=== PATIENT | female | born 1960 | race Caucasian/White ===

== ENCOUNTER 2016-12-20 17:30 | Emergency (ER) | payer SELFPAY | END 2016-12-20 17:46 | disposition left against medical advice (07) | LOC: ERS 17:30 | DX: Z53.21 Procedure and treatment not carried out due to patient leaving prior to being seen by health care provider (principal) ==

== ENCOUNTER 2017-08-02 15:19 | Emergency (ER) | payer SELFPAY ==
[2017-08-02 15:50] LABS: #Basophils 0.1 thou/uL (0.0-0.2); #Eosinphils 0.1 thou/uL (0.0-0.7); #Lymphocytes 3.1 thou/uL (1.20-3.40); #Neutrophils 6.4 thou/uL (1.40-6.50); %Basophils 0.5 % (0.0-1.0); %Eosinophils 1.3 % (0.0-10.0); %Lymphocytes 28.8 % (21.0-51.0); %Monocytes 9.6 % (0.0-10.0); %Neutrophils 59.9 % (42.0-75.0); Hemoglobin 15.1 g/dL (12.0-16.0); Mean Corpuscular HGB CONC 35.3 g/dL (32.0-36.0); Mean Corpuscular Hemoglobin 34.6 pg (27.0-31.0); Mean Corpuscular Volume 97.9 fl (81.0-99.0); Mean Platelet Volume 7.2 fL (7.4-10.4); Platelet Count 150 thou/uL (130-400); RBC Distribution Width 11.6 % (11.5-14.5); Red Blood Cell (RBC) Count 4.36 mill/uL (4.20-5.40); White Blood Cell (WBC) Count 10.6 thou/uL (4.8-10.8)
--- NOTE | 2017-08-02 15:54 | RAD ---
PORTABLE CHEST: 08/02/17 HISTORY: Chest pain. Lungs are clear. Heart and mediastinum unremarkable. IMPRESSION: Unremarkable portable chest. POS: [facility]
[2017-08-02 16:25] LABS: ALT (SGPT) 55 U/L (8-55); AST (SGOT) 34 U/L (5-34); Alkaline Phosphatase 74 U/L (40-150); Anion Gap 15 mmol/L (10-20); BUN (Urea Nitrogen) Less than 4 mg/dL (9.8-20.1); Bilirubin, Total 0.5 mg/dL (0.2-1.2); CK (CPK) 145 U/L (29-168); Calc. Creatinine Clearance 0 mL/min (70-130); Calcium 8.9 mg/dL (7.8-10.44); Carbon Dioxide 22 mmol/L (22-29); Chloride 99 mmol/L (98-107); Estimated GFR-MDRD Greater than 90; Globulin 2.8 g/dL (2.4-3.5); Glucose 113 mg/dL (70-105); Lipase 49 U/L (8-78); Potassium 3.9 mmol/L (3.5-5.1); Protein, Total 6.8 g/dL (6.0-8.3); Sodium 132 mmol/L (136-145)
[2017-08-02 16:34] LABS: CKMB 2.3 ng/mL (0-6.6); Troponin I Less than 0.010 ng/mL (< 0.028)
== END 2017-08-02 17:22 | disposition home or self-care (01) ==
LOC: ERS 15:19
DX: M25.512 Pain in left shoulder (principal); F10.10 Alcohol abuse, uncomplicated; Z71.6 Tobacco abuse counseling; I10 Essential (primary) hypertension; F41.9 Anxiety disorder, unspecified; F17.210 Nicotine dependence, cigarettes, uncomplicated
CPT/HCPCS: 36415; 71045; 80053; 82553; 83690; 84484; 85025; 93005; 99406

== ENCOUNTER 2017-10-05 14:10 | Observation (INO) | payer SELFPAY ==
[2017-10-05 14:43] LABS: #Basophils 0.1 thou/uL (0.0-0.2); #Eosinphils 0.1 thou/uL (0.0-0.7); #Lymphocytes 3.1 thou/uL (1.20-3.40); #Monocytes 1.1 thou/uL (0.11-0.59); #Neutrophils 7.7 thou/uL (1.40-6.50); %Basophils 0.8 % (0.0-1.0); %Eosinophils 1.1 % (0.0-10.0); %Lymphocytes 25.7 % (21.0-51.0); %Monocytes 8.7 % (0.0-10.0); %Neutrophils 63.6 % (42.0-75.0); Hemoglobin 15.8 g/dL (12.0-16.0); Mean Corpuscular Hemoglobin 35.4 pg (27.0-31.0); Mean Corpuscular Volume 98.3 fL (78.0-98.0); Mean Platelet Volume 6.7 fL (7.4-10.4); Platelet Count 207 thou/uL (130-400); RBC Distribution Width 11.9 % (11.5-14.5); Red Blood Cell (RBC) Count 4.47 mill/uL (4.20-5.40); White Blood Cell (WBC) Count 12.1 thou/uL (4.8-10.8)
[2017-10-05 14:46] LABS: Bilirubin Negative (Negative); Blood, Urine Trace (Negative); Clarity CLOUDY (Clear); Glucose, Urine (Dipstick) Negative (Negative); Leukocyte Large (Negative); Nitrite Positive (Negative); Protein, Urine (Dipstick) Negative (Neg-Trace); Urobilinogen 0.2 mg/dL (0.2-1.0)
[2017-10-05 14:47] LABS: Pathc Cast-AUWi Flag 0.29 (0-2.49)
[2017-10-05 14:48] LABS: Specific Gravity, Urine 1.003 (1.002-1.036)
[2017-10-05 14:55] LABS: Bacteria/HPF 2+ HPF (None Seen); Hyaline Casts/LPF NONE SEEN LPF (0-3 Hyaline); RBC/HPF 0-3 HPF (0-3); Squamous Epithelial 0-3 HPF (0-3)
[2017-10-05 15:03] LABS: ALT (SGPT) 40 U/L (8-55); AST (SGOT) 22 U/L (5-34); Albumin 3.8 g/dL (3.5-5.0); Alkaline Phosphatase 67 U/L (40-150); Anion Gap 14 mmol/L (10-20); BUN (Urea Nitrogen) 4 mg/dL (9.8-20.1); Bilirubin, Total 0.7 mg/dL (0.2-1.2); Calc. Creatinine Clearance 0 mL/min (70-130); Calcium 9.1 mg/dL (7.8-10.44); Carbon Dioxide 22 mmol/L (22-29); Chloride 100 mmol/L (98-107); Estimated GFR-MDRD Greater than 90; Globulin 3.2 g/dL (2.4-3.5); Glucose 87 mg/dL (70-105); Potassium 3.9 mmol/L (3.5-5.1); Sodium 132 mmol/L (136-145)
[2017-10-05 15:07] LABS: CKMB 1.5 ng/mL (0-6.6); Troponin I Less than 0.010 ng/mL (< 0.028)
--- NOTE | 2017-10-05 15:16 | RAD ---
CHEST 1 VIEW: HISTORY: Pain. COMPARISON: 08/02/17. FINDINGS: Normal cardiac silhouette. Pulmonary vessels and hilum are normal. Costophrenic angles are clear. No mass. No consolidation. No pneumothorax or osseous abnormalities. IMPRESSION: No acute cardiopulmonary process. POS: [facility]
[2017-10-05] MEDS ORDERED: cefTRIAXone\\ROCEPHIN 1 GM in Sodium Chloride 0.9% 100 ML IVPB SCH (15:45)
[2017-10-05] MEDS ORDERED: cefTRIAXone\\ROCEPHIN 1 GM VIAL ONE (15:49)
[2017-10-05] MEDS ORDERED: Acetaminophen 325 MG TAB PO PRN (17:47)
[2017-10-05 17:54] LABS: Troponin I Less than 0.010 ng/mL (< 0.028)
[2017-10-05 19:19] VITALS: BMI 22.6
[2017-10-05] MEDS ORDERED: Ibuprofen 200 MG TAB PO PRN (21:23)
[2017-10-05] MEDS ORDERED: Acetaminophen 500 MG TAB PO PRN (21:23)
[2017-10-05 21:30] LABS: Troponin I Less than 0.010 ng/mL (< 0.028)
--- NOTE | 2017-10-05 23:59 | HP ---
CHIEF COMPLAINT: Chest pain. HISTORY OF PRESENT ILLNESS: This is a 57-year-old female, patient of Dr. Preston Mcgregor, vadim t turns out as not actually a current patient of Dr. Mcgregor, but that is what the ER was led to belie ve. She had started what she called chest pain earlier today. So, she came to ER for further evalua tion. She was last admitted in 2016 by the residents. PAST MEDICAL HISTORY: Positive for hypertension, hyperlipidemia, COPD, anxiety, osteoarthritis, and degenerative joint disease. PAST SURGICAL HISTORY: x2. ALLERGIES: She is allergic to TRAZODONE. MEDICATIONS: Currently none, but she has taken lisinopril from a friend or neighbor. She also takes NSAIDs periodically for her joint pain. FAMILY HISTORY: Her father, brother, and mother all of coronary artery disease before the age o f 55. SOCIAL HISTORY: She smokes 2+ packs a day for at least 25-30 years. She is drinking 5-6 beers a day . She is , had two children; one had a crib as an infant and one is still living, but l barbara in [place]. REVIEW OF SYSTEMS: She has had the chest pain as stated in HPI; mild shortness of breath, but no cou gh. Denies any radiation of this pain. Denies any abdominal complaints. No nausea or vomiting with it. No fevers or chills. Denies any GI symptoms or symptoms. Only other complaint primarily is the right hip pain. She denies any anxiety symptoms at this time. She denies any suicidal or homic idal ideations. She denies any paresis or paresthesias. PHYSICAL EXAMINATION: GENERAL: She is lying in bed, resting comfortably in dark room. VITAL SIGNS: Temperature is 99.1, pulse 85, BP is 108/65, respirations 18. HEENT: Essentially unremarkable. Pupils are equal, round, and reactive to light and accommodation. Extraocular movements are intact. Mucosal membranes are moist. NECK: Supple. No JVD, no bruits, no thyromegaly. LUNGS: Distant sounding, but no rales, rhonchi, or wheezes. HEART: S1, S2 with no rubs, murmurs, or gallops. ABDOMEN: Soft, nontender, nondistended. No palpable masses. No hepatosplenomegaly. Bowel sounds a re hypoactive throughout. EXTREMITIES: Good palpable pulses in all 4 extremities. No cyanosis, clubbing, or edema. GENITOURINARY: Deferred. NEUROLOGIC: She is alert and oriented x4. Cranial nerves II-XII are equal and symmetrical. No [place] r or sensory deficits appreciated. LABORATORY DATA: White count is 12.1, H&H is 16 and 44 respectively with 207,000 platelets, neutroph ils 63%, lymphocytes 25%. Sodium is slightly low at 132, potassium 3.9, chloride 100, bicarbonate 22 , BUN is 4, creatinine 0.6, glucose is 87. AST is normal at 22 and ALT is normal at 40. CK-MB is no rmal at 1.5. Troponin is undetectable x2. Urinalysis shows a positive nitrite, positive leukocyte e sterase with 7-10 white blood cells. ASSESSMENT AND PLAN: Chest pain. She is in for a rule out. She also has urinary tract infection on labs, mild hyponatremia. We will start her with dose of Rocephin in the ER. We will also start her on Cipro. We will also start some DuoNeb for her COPD to see if that help some of the chest pain th at she has been having.
[2017-10-06] MEDS ORDERED: Ciprofloxacin 500 MG TAB PO SCH (06:00)
[2017-10-06 08:08] VITALS: BP 134/64; TEMP 98.8
--- NOTE | 2017-10-06 09:52 | DIS ---
ADMITTING DIAGNOSIS: Chest pain. DISCHARGE DIAGNOSES: 1. Noncardiac chest pain. 2. Differential includes chronic obstructive pulmonary disease versus anxiety. HOSPITAL COURSE: The patient is a 57-year-old female who started to experience chest pain yesterday that was upper chest and then some tingling down into her left hand. She said sometimes it actually would tingle in both hands, mostly the left side, but there was a tightening sensation acro ss the upper chest and to both shoulders. She came to the emergency room for further evaluation. zion led the emergency room to believe that she was seeing Dr. Mcgregor. So she was admitted under his se rvice. It turns out she had not been seen Dr. Mcgregor in almost 10 years as she cannot afford the vis its. She was seeing the [facility], which she could not continue to see them due to cost ei er. Recently, she has been going to [facility] for any of her medical needs. Her hospital cours e was essentially uneventful. She had an incidental finding of a urinary tract infection. Her tropo olman levels were all undetectable. Since coming up to the floor she had no further episodes of chest pain. So the plan is to discharge to home, to have her get some antibiotics for her urine. She did receive a gram of Rocephin in the emergency room and started on some Cipro today. We will send out a prescription for the Cipro for her and have her follow up with [facility] in 1-2 weeks.
== END 2017-10-06 09:54 | disposition home or self-care (01) ==
LOC: ERS 14:10 → 2SW 17:36
PROVIDERS: ADMIT Family Medicine; ATTEND Family Medicine
DX: R07.89 Other chest pain (principal); I10 Essential (primary) hypertension; E78.5 Hyperlipidemia, unspecified; J44.9 Chronic obstructive pulmonary disease, unspecified; F41.9 Anxiety disorder, unspecified; M19.90 Unspecified osteoarthritis, unspecified site; N39.0 Urinary tract infection, site not specified; Z88.8 Allergy status to other drugs, medicaments and biological substances
CPT/HCPCS: 36415; 71045; 80053; 81003; 81015; 82553; 84484; 85025; 87077; 87086; 87186; 90471; 90732; 93005; 94640; 94760; 96365; A4216; G0009; G0378; J0696; J7050; J7620

== ENCOUNTER 2017-10-26 15:51 | Emergency (ER) | payer SELFPAY ==
[2017-10-26 16:25] LABS: Bilirubin Negative (Negative); Blood, Urine Moderate (Negative); Clarity TURBID (Clear); Glucose, Urine (Dipstick) Negative (Negative); Leukocyte Large (Negative); Nitrite Positive (Negative); Protein, Urine (Dipstick) 30 mg/dL (Neg-Trace); Specific Gravity, Urine 1.005 (1.002-1.036); Urobilinogen 0.2 mg/dL (0.2-1.0)
[2017-10-26 16:27] LABS: Bacteria/HPF 4+ HPF (None Seen); Hyaline Casts/LPF 0-3 HYALINE CAST LPF (0-3 Hyaline); Squamous Epithelial 0-3 HPF (0-3)
[2017-10-26 17:09] LABS: #Basophils 0.1 thou/uL (0.0-0.2); #Eosinphils 0.1 thou/uL (0.0-0.7); #Monocytes 0.7 thou/uL (0.11-0.59); #Neutrophils 5.1 thou/uL (1.40-6.50); %Basophils 0.9 % (0.0-1.0); %Eosinophils 1.1 % (0.0-10.0); %Lymphocytes 24.9 % (21.0-51.0); %Monocytes 9.3 % (0.0-10.0); %Neutrophils 63.8 % (42.0-75.0); Hemoglobin 15.2 g/dL (12.0-16.0); Mean Corpuscular HGB CONC 35.2 g/dL (32.0-36.0); Mean Corpuscular Volume 99.4 fL (78.0-98.0); Mean Platelet Volume 6.9 fL (7.4-10.4); Platelet Count 149 thou/uL (130-400); RBC Distribution Width 12.2 % (11.5-14.5); Red Blood Cell (RBC) Count 4.33 mill/uL (4.20-5.40)
[2017-10-26] MEDS ORDERED: Ketorolac Tromethamine 30 MG/ML VIAL ONE (17:10)
[2017-10-26] MEDS ORDERED: Multivitamin W/ Minerals 1 TAB PO SCH (17:15)
[2017-10-26] MEDS ORDERED: cefTRIAXone\\ROCEPHIN 1 GM VIAL ONE (17:21)
[2017-10-26] MEDS ORDERED: Folic Acid 1 MG TAB ONE (17:21)
[2017-10-26 17:31] LABS: ALT (SGPT) 41 U/L (8-55); AST (SGOT) 23 U/L (5-34); Albumin 3.8 g/dL (3.5-5.0); Alkaline Phosphatase 74 U/L (40-150); Anion Gap 14 mmol/L (10-20); BUN (Urea Nitrogen) 4 mg/dL (9.8-20.1); Bilirubin, Direct 0.3 mg/dL (0.1-0.3); Bilirubin, Total 0.5 mg/dL (0.2-1.2); Calc. Creatinine Clearance 0 mL/min (70-130); Carbon Dioxide 24 mmol/L (22-29); Chloride 102 mmol/L (98-107); Estimated GFR-MDRD Greater than 90; Globulin 3.2 g/dL (2.4-3.5); Glucose 101 mg/dL (70-105); Potassium 3.7 mmol/L (3.5-5.1); Sodium 136 mmol/L (136-145)
[2017-10-26 17:39] LABS: CKMB 1.7 ng/mL (0-6.6); Troponin I Less than 0.010 ng/mL (< 0.028)
--- NOTE | 2017-10-26 18:50 | RAD ---
PORTABLE AP CHEST RADIOGRAPH: Date: 10-26-17 History: Syncope. Comparison: 10-05-17 FINDINGS: Cardiac silhouette and pulmonary vasculature are within normal limits. The lungs remain clear. There has been no interval change from the prior exam. IMPRESSION: No acute cardiopulmonary process. POS: [facility]
== END 2017-10-26 19:20 | disposition home or self-care (01) ==
LOC: ERS 15:51
DX: F10.10 Alcohol abuse, uncomplicated (principal); R55 Syncope and collapse; I10 Essential (primary) hypertension; F41.9 Anxiety disorder, unspecified; F17.210 Nicotine dependence, cigarettes, uncomplicated; Z79.899 Other long term (current) drug therapy
CPT/HCPCS: 71045; 80076; 81003; 81015; 82550; 82553; 84484; 85025; 87077; 87086; 87186; 93005; 96361; 96365; 96375; J0696; J1885

== ENCOUNTER 2021-09-21 16:09 | Emergency (ER) | payer SELFPAY ==
[2021-09-21] MEDS ORDERED: Morphine 4 MG/ML VIAL ONE ×2 (16:29→19:34)
[2021-09-21] MEDS ORDERED: Ondansetron PF 4 MG/2 ML Vial ONE (16:29)
[2021-09-21] MEDS ORDERED: Ketamine 50 MG/ML (10ML VIAL) ONE (17:34)
[2021-09-21] MEDS ORDERED: PROPOFOL 20 ML ONE (18:13)
[2021-09-21] MEDS ORDERED: Acetaminophen 500 MG TAB ONE (19:34)
[2021-09-21] MEDS ORDERED: Ketorolac Tromethamine 30 MG/ML VIAL ONE (19:34)
== END 2021-09-21 20:38 | disposition home or self-care (01) ==
LOC: ERS 16:09
DX: S82.852A Displaced trimalleolar fracture of left lower leg, initial encounter for closed fracture (principal); S93.05XA Dislocation of left ankle joint, initial encounter; W10.9XXA Fall (on) (from) unspecified stairs and steps, initial encounter; I10 Essential (primary) hypertension; F17.210 Nicotine dependence, cigarettes, uncomplicated; Z79.899 Other long term (current) drug therapy
CPT/HCPCS: 27818; 96374; 96375; 96376; 99152; J1885; J2270; J2405; J2704